=== PATIENT | female | born 1955 | race Caucasian/White ===

== ENCOUNTER 2018-08-05 17:32 | Emergency (ER) | payer OTHER ==
[~2018-08-05] VITALS: Ht 157.5 cm; Wt 61.4 kg
[2018-08-05] MEDS ORDERED: METF-960 PO (17:44)
[2018-08-05] MEDS ORDERED: DULA0.75 SQ (17:44)
[2018-08-05] MEDS ORDERED: PIOG30TA10 PO (17:44)
[2018-08-05] MEDS ORDERED: ASPI81 PO (17:44)
[2018-08-05] MEDS ORDERED: FAMO20 PO (17:44)
[2018-08-05 17:49] LABS: GLUCOSE,POINT OF CARE 116 MG/DL (70-110)
[2018-08-05] MEDS ORDERED: FLUORESCEIN SODIUM 1 MG STRIP OU ONE (19:45)
[2018-08-05] MEDS ORDERED: PROPARACAINE HCL 0.5% 15 ML OPHTHALMIC SOLUTION OD ONE (19:45)
[2018-08-05 20:51] VITALS: BP 137/76
== END 2018-08-05 20:56 | disposition home or self-care (01) ==
LOC: EMS 17:33
DX: H10.89 Other conjunctivitis (principal); B99.9 Unspecified infectious disease; H57.89 Other specified disorders of eye and adnexa; E11.9 Type 2 diabetes mellitus without complications; K21.9 Gastro-esophageal reflux disease without esophagitis; I51.9 Heart disease, unspecified; F17.210 Nicotine dependence, cigarettes, uncomplicated; Z79.82 Long term (current) use of aspirin; Z79.84 Long term (current) use of oral hypoglycemic drugs